=== PATIENT | male | born 1970 | race African-American/Black ===

== ENCOUNTER 2017-06-28 09:51 | Emergency (ER) | payer MEDICAID ==
[~2017-06-28] VITALS: Ht 175.3 cm; Wt 129.4 kg
[2017-06-28 09:53] VITALS: BP 125/68
--- NOTE | 2017-06-28 10:00 | NUR ---
Patient to bed 11.
--- NOTE | 2017-06-28 10:09 | NUR ---
47M BIB SELF WITH C/O 4/10 "SHARP" NON RADIATING ANTERIOR HEAD PAIN S/P "HITTING HEAD ON CAR DOOR LAST SATURDAY; PT DENIES ANY CHANGES IN VISION OR LOC; PT IS AOX4, WITH STEADY GAIT; RR AR EVEN AND UNLABORED; NAD. WILL CONTINUE TO MONITOR. ER MD AWARE OF PT STATUS.
--- NOTE | 2017-06-28 10:10 | NUR ---
ER MD SAMUEL BY BEDSIDE
--- NOTE | 2017-06-28 10:13 | NUR ---
PT TO CT VIA W/C ACCOMPANIED BY [employer] DEVELOPER
[2017-06-28] MEDS ORDERED: ACETAMINOPHEN EXTRA STRENGTH 500 MG TAB PO ONE (10:15)
--- NOTE | 2017-06-28 10:20 | NUR ---
Patient back from CT via wheelchair per tech.
[2017-06-28 11:09] VITALS: BP 108/82
--- NOTE | 2017-06-28 11:09 | NUR ---
Patient discharged with v/s stable. Written and verbal after care instructions given and explained. Patient alert, oriented and verbalized understanding of instructions. Ambulatory with steady gait. All questions addressed prior to discharge. ID band removed. Patient advised to follow up with PMD. Rx of [place] #5 given. Patient educated on indication of medication including possible reaction and side effects. Opportunity to ask questions provided and answered.
== END 2017-06-28 11:09 | disposition home or self-care (01) ==
LOC: MED 09:51
DX: R51 Headache (principal); I10 Essential (primary) hypertension
CPT/HCPCS: 70450; 99284

== ENCOUNTER 2017-07-08 08:28 | Emergency (ER) | payer MEDICAID ==
[~2017-07-08] VITALS: Ht 175.3 cm; Wt 133.1 kg
[2017-07-08 09:05] VITALS: BP 127/82
--- NOTE | 2017-07-08 09:05 | NUR ---
PT TAKEN TO BED 3.
--- NOTE | 2017-07-08 09:10 | NUR ---
PATIENT BIB SELF C/O RUNNY NOSE AND COUGH X 4 DAYS.HX OF KIDNEY TRANSPLANT, HTN .DENIES N/V/D; SKIN IS PINK/WARM/DRY; AAOX4 WITH EVEN AND STEADY GAIT; LUNGS CLEAR BL; HR EVEN AND REGULAR; PT DENIES ANY FEVER, CP, SOB AT THIS TIME; PATIENT STATES PAIN OF 0/10 AT THIS TIME;PATIENT POSITIONED FOR COMFORT; HOB ELEVATED; BEDRAILS UP X2; BED DOWN. ER MD MADE AWARE OF PT STATUS.
[2017-07-08 09:39] VITALS: BP 122/75
== END 2017-07-08 09:39 | disposition home or self-care (01) ==
LOC: MED 08:28
DX: J06.9 Acute upper respiratory infection, unspecified (principal)
CPT/HCPCS: 99283